=== PATIENT | female | born 1990 | race Caucasian/White ===

== ENCOUNTER 2023-12-15 16:12 | Emergency (ER) | payer OTHER ==
[2023-12-15 16:44] VITALS: BP 130/85; PULSE 80; RESP 18; TEMP 98.2; BMI 31.1
== END 2023-12-15 20:20 | disposition left against medical advice (07) ==
LOC: JER 16:12
DX: J34.89 Other specified disorders of nose and nasal sinuses (principal); W22.8XXA Striking against or struck by other objects, initial encounter
CPT/HCPCS: 99282-25